=== PATIENT | female | born 1955 | race Caucasian/White ===

== ENCOUNTER 2025-02-28 11:02 | Emergency (ER) | payer MEDICARE, SELFPAY ==
[2025-02-28 11:33] VITALS: BP 132/75; PULSE 56; RESP 16; TEMP 36.7; O2SAT 98
--- OUTSIDE RECORDS SUMMARY | 2025-02-28 13:49 | XMS_ITS | Encounter Summary ---
Author Organization [facility] Healthcare Address [address] [place] [id number] Care Team Providers Care Fiscal Accounting Clerk Name Role Phone Melinda Johnson Primary Care Provider Reason for Visit * Reason Comments Injections Est patient here for right shoulder ultrasound guided hydrodilation injection. Patient is scheduled for P/T at 1:45 pm.Pain: 2/10 Pain Est patient here for right shoulder ultrasound guided hydrodilation injection. Patient is scheduled for P/T at 1:45 pm.Pain: 2/10 Encounter Details Date Type Department Care Team (Late st Contact Info) Description 02/28/2025 10:00 AM CDT Office Visit [facility] Sports Medicine and Primary Care at [address] [place] [address] Narciso Andino, [address] [facility] [address] [place] [id number] Adhesive capsulitis of right shoulder (Primary Dx) Social History Tobacco Use Types Packs/Day Years Used Date Smoking Tobacco: Never Tobacco Cessation:Counseling Given: Not Answered AUDIT-C Answer Date Recorded Q1: How often do you have a drink containing alc ohol? Never 01/27/2025 Q2: How many drinks containi ng alcohol do you have on a typical day when you are drinking? 1 or 2 01/27/2025 Q3: How often do you have si x or more drinks on one occasion? 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 Gender Identity Not on file Sexual Orientation Not on file documented as of this encounter Last Filed Vital Signs Vital Sign Reading Time Taken Comments Blood Pressure 127/70 02/28/2025 9:49 AM CDT Pulse 96 02/28/2025 9:49 AM CDT Temperature - - Respiratory Rate 18 02/28/2025 9:49 AM CDT Oxygen Saturation - - Inhaled Oxygen Concentration - - Weight 81.1 kg (178 lb 12.8 oz) 02/28/2025 9:49 AM CDT Height 162.6 cm (5' 4 ) 02/28/2025 9:49 AM CDT Body Mass Index 30.69 02/28/2025 9:49 AM CDT documented in this encounter Progress Notes * Narciso Andino, - 02/28/2025 10:00 AM CDT Images from the original note were not included. NEW PATIENT VISIT Subjective CHIEF COMPLAINT She had concerns including Injections and Pain of the Right Shoulder (Est patient here for right shoulder ultrasound guided hydrodilation injection. Patient is scheduled for P/T at 1:45 pm./Pain: 11/28). HISTORY OF PRESENT ILLINESS Here for her right shoulder ultrasound-guided hydro dilation with suprascapular nerve block. Patient states the pain is the same as it was before and she is scheduled for her physical therapy at 1:45p.m. today. Discussed the risks and benefits of the procedure today. Discussed the conservative management including PT and avoidance of offending activities with time. Discussed the outcomes of eachdifferent treatment process and their potential outcomes. Went over the major risk nature of this procedure including the risks of: infection, bleeding, damage to tendon/ligament, damage to nerves/vessels, and possible need for further intervention at a later date. Explained to patient that their particular medical problems including Functional neurological symptom disorder with abnormal movementwill increase the risk in this case. Patient agreed to pursue the procedure and we will schedule for this at the next visit. Pain Pertinent negatives include no chest pain, diarrhea, fever, nausea, shortness of breath, vomiting or wheezing. MEDICATIONS She has a current medication list which includes the following prescription(s): aspirin, c,e,zinc,copper [id number], calcium carbonate-vitamin d3, cyanocobalamin (vitamin b-12), fish oil-dha-epa,klor-con m20, multivitamin, omeprazole, potassium cl-calcium phos-mag, rosuvastatin, and triamcinolone. ALLERGIES She is allergic to penicillins. REVIEW OF SYSTEMS Review of Systems Constitutional: Negative for chills, diaphoresis and fever. HENT: Negative for sore throat and tinnitus. Eyes: Negative for photophobia. Respiratory: Negative for shortness of breath and wheezing. Cardiovascular: Negative for chest pain and palpitations. Gastrointestinal: Negative for diarrhea, nausea and vomiting. Musculoskeletal: Positive for arthralgias. Objective PHYSICAL EXAM BP 127/70 Pulse 96 Resp 18 Ht 162.6 cm (5' 4 ) Wt 81.1 kg (178 lb 12.8 oz) BMI 30.69 kg/m?? Assessment/Plan Assessment & Plan Adhesive capsulitis of right shoulder Orders: lidocaine (XYLOCAINE) 20 mg/mL (2 %) injection 280 mg methylPREDNISolone acetate (DEPO-medrol) injection 80 mg Procedures done under ultrasound guidance as noted in the procedure note today. Patient tolerated the procedures well. Advised to call if any signs of infection or bleeding or any signs of nerve damage. If she can not get a hold of me she should go to the emergency room. I advised on getting into her physical therapy for her range of motion activities today and following up frequently with them as prescribed. If there is limited to no improvement then she should return to the office and we can discuss other options. She exhibited understanding and is in agreement with this plan of care. Narciso Andino DO documented in this encounter Procedure Notes * Narciso Andino DO - 02/28/2025 10:00 AM CDT US guided right shoulder hydrodilation procedure Patient name: Sharonda Reid Performing physician: Narciso Andino DO, [place] Reason for procedure: Right shoulder adhesive capsulitis Procedure 1: Patient in the left lateral recumbent position. The right shoulder was sterilized using hibiclens. Sterile technique was used on the US probe, along with sterile US gel. The Probe was placed over theposteromedial shoulder and the suprascapular notch was identified with the suprascapular nerve noted within the notch. Doppler ultrasound was used over the pathway of the needle to confirm no vascular structures within the pathway. After confirming the pathway, a 22 gauge, 3.5 in needle was inserted on the lateral aspect of the shoulder, implant to the transducer, and the needle tip was identified in the subcutaneous tissue. The needle was advanced in real-time to the suprascapular notch just superficial to the suprascapular nerve, and a substrate of 4 cc of 2% lidocaine without epinephrine was injected around the suprascapular nerve. Flow of fluid around the nerve and within the notch werenoted for confirmation of placement. Impression: 1 - successful injection of substrate for suprascapular nerve block under ultrasound guidance Procedure 2: Patient placed in the left lateral recumbent position. The right shoulder was again sterilized using Hibiclens. Again sterile technique was used on the ultrasound probe along with sterile ultrasound gel. The probe was placed over the posterolateral shoulder and the posterior shoulder joint was identified. Care was taken to identify the posterior joint capsule. Doppler ultrasound was placed over the pathway of the needle to confirm no vasculature within the pathway of the needle. Once this was confirmed, a 3.5 in 18 gauge needle was inserted on the lateral aspect of the shoulder, implant to the transducer, and the needle tip was identified in the subcutaneous tissue. The needle was advanced,in real time, to the posterior shoulder capsule. Once noted within the shoulder capsule, a substrate of 7 cc of 2% lidocaine without epinephrine +15 cc of sterile saline + 1ml of 80mg of DepoMedrol was injected into the posterior shoulder. Flow of fluid within the capsule was noted for confirmationof placement along with the distention of the capsule. Impression: Successful hydrodilation of the right shoulder under ultrasound guidance. documented in this encounter Miscellaneous Notes * Assessment & Plan Note - Narciso Andino DO - 02/28/2025 10:00 AM CDT Associated Problem(s): Adhesive capsulitis of right shoulder Orders: lidocaine (XYLOCAINE) 20 mg/mL (2 %) injection 280 mg methylPREDNISolone acetate (DEPO-medrol) injection 80 mg Procedures done under ultrasound guidance as noted in the procedure note today. Patient tolerated the procedures well. Advised to call if any signs of infection or bleeding or any signs of nerve damage. If she can not get a hold of me she should go to the emergency room. I advised on getting into her physical therapy for her range of motion activities today and following up frequently with them as prescribed. If there is limited to no improvement then she should return to the office and we can discuss other options. She exhibited understanding and is in agreement with this plan of care. documented in this encounter Plan of Treatment Not on file documented as of this encounter Visit Diagnoses Diagnosis Adhesive capsulitis of right shoulder- Primary documented in this encounter Administered Medications Inactive Administered Medications - up to 3 most recent administrations Medication Order MAR Action Action Date Dose Rate Site lidocaine (XYLOCAINE) 20 mg/mL (2 %) injection 280 mg 280 mg (14 mL), other, Once, On Thu02/28/25 at 1030, For 1 dose, Indications: Administration of Local AnesthesiaIndications:Admini stration of Local Anesthesia Given 02/28/2025 9:48 AM CDT 280 mg Right Shoulder methylPREDNISolone acetate (DEPO-medrol) injection 80 mg 80 mg, other, Once, On Thu02/28/25 at 1030, For 1 doseIndications:Adhesive capsulitis of right shoulder Given 02/28/2025 9:48 AM CDT 80 mg Right Shoulder documented in this encounter Care Teams Fiscal Accounting Clerk Relationship Specialty Start Date End Date Melinda Johnson PA [address] [place] [id number] PCP - General 04/23/22 documented as of this encounter
--- OUTSIDE RECORDS SUMMARY | 2025-02-28 13:49 | XMS_ITS | Encounter Summary ---
Author Organization [facility] Address [address] [place] [address] Care Team Providers Care Fence Post Driver Name Role Phone Clement Gates MD Primary Care Provider [phone] Chris Torres MD [facility] Jerica Dominguez MD Primary Care Provider [phone] Encounter Details Date Type Department Care Team (Late st Contact Info) Description 03/26/2019 Abstract [facility] CONVERSION [address] [place] [address] , Generic Conversion, Social History Tobacco Use Types Packs/Day Years Used Date Smoking Tobacco: Never Smokeless Tobacco: Never Alcohol Use Standard Drinks/Week Comments Yes 0 (1 standard drink = 0.6 oz pur e alcohol) rare Comments Unknown Sex and Gender Information Value Date Recorded Sex Assigned at Not on file Legal Sex Female 4:47 PM CDT Gender Identity Not on file Sexual Orientation Not on file documented as of this encounter Plan of Treatment Not on file documented as of this encounter Visit Diagnoses Not on filedocumented in this encounter Care Teams Fence Post Driver Relationship Specialty Start Date End Date Clement Gates MD [address] [place] [address] PCP - General FAMILY PRACTICE 06/29/18 10/01/20 [place] [address] PCP - General FAMILY PRACTICE 10/02/20 Chris Torres MD [address] [place] [address] [place] [employer] Manager INTERVENTIONAL CARDIOLOGY 06/29/18 documented as of this encounter
--- OUTSIDE RECORDS SUMMARY | 2025-02-28 13:49 | XMS_ITS | Referral Summary ---
Author Organization [facility] Address [address] [place] [address] Care Team Providers Care Go Cart Mechanic Name Role Phone Melinda Johnson Primary Care Provider Encounters Date Type Department Care Team Description 02/28/2025 Documentation [facility] Medical [facility] Sports Medicine and Primary Care at [address] [phone] Rachel Bajwa MA 02/28/2025 10:00 AM CDT Office Visit [facility] Sports Medicine and Primary Care at [address] [phone] Narciso Andino DO Adhesive capsulitis of right shoulder (Primary Dx) 02/23/2025 10:00 AM CDT Therapy [facility] Occupational Therapy [address] [place] [phone] Shahla Stern OT Functional neurological symptom disorder (conversion disorder), with abnormal movement (Primary Dx) 02/21/2025 Telephone [facility] Orthopedics and Sports Medicine [address] [place] [address] [address], [place] [phone] Narciso Andino DO 02/16/2025 9:00 AM CDT Therapy [facility] Occupational Therapy [address] [place] [phone] Shahla Stern OT Functional neurological symptom disorder (conversion disorder), with abnormal movement (Primary Dx) 02/13/2025 8:30 AM CDT Office Visit [facility] Medical [facility] Sports Medicine and Primary Care at [address] [place] [address] Narciso Andino DO Adhesive capsulitis of right shoulder (Primary Dx) 02/09/2025 10:00 AM CDT Therapy [facility] Occupational Therapy [address] [place] [phone] Shahla Stern OT Functional neurological symptom disorder (conversion disorder), with abnormal movement (Primary Dx) 02/06/2025 Orders Only [facility] Orthopedics and Sports Medicine [address] [place] [address] [address] [place] [phone] Jewel Hager PA Adhesive capsulitis of right shoulder (Primary Dx) 02/06/2025 Telephone [facility] Orthopedics and Sports Medicine [address] [place] [address] [address], [place] [address] Jewel Hager PA 02/02/2025 Plan of Care Documentation [facility] Occupational Therapy [address] [place] [phone] 02/01/2025 10:00 AM CDT Therapy [facility] Occupational Therapy [address] [place] [phone] Shahla Stern OT Functional neurological symptom disorder (conversion disorder), with abnormal movement (Primary Dx) 01/27/2025 10:00 AM CDT Office Visit [facility] Orthopedics [facility] Sports Medicine [address] [place] [address] [address], [place] [address] Jewel Hager PA Adhesive capsulitis of right shoulder (Primary Dx) 01/17/2025 7:00 PM CDT Lab [facility] [address] [place] [address] Myoclonus 01/17/2025 2:30 PM CDT Office Visit [facility] Movement Disorders [address] [facility] Advanced Medicine [address]th [place] [address] Tri Eastman MD Functional neurological symptom disorder (conversion disorder), with abnormal movement (Primary Dx); Myoclonus 12/22/2024 Telephone [facility] Scheduling [address] [place] [address] Tri Eastman MD Scheduling Appointments from Last 3 Months Allergies Active Allergy Reactions Criticality Noted Date Comments Penicillins Hives High 06/11/2020 Medications omeprazole (PriLOSEC) 40 mg capsule Take 1 capsule (40 mg total) by mouth daily 4 Active Klor-Con M20 20 mEq CR tablet Take 1 tablet (20 mEq total) by mouth daily Active rosuvastatin (CRESTOR) 10 mg tablet Take 1 tablet (10 mg total) by mouth daily Active multivitamin tabletIndicatio ns:Vitamin Deficiency Prevention Take 1 tablet by mouth daily Active calcium carbonate-vitam in D3 1,500 mg (600 mg elemental)-800 unit tablet,chewable Take 1 tablet/capsule by mouth daily Active aspirin 81 mg chewable tablet Take 1 tablet (81 mg total) by mouth daily Active cyanocobalamin, vitamin B-12, 1,000 mcg/mL kit Take 1 tablet/capsule by mouth daily Active fish oil-dha-epa 1,200-144-216 mg capsule Take 1 tablet/capsule by mouth daily Active triamcinolone (NASACORT) 55 mcg nasal inhaler Administer 2 sprays into each nostril as needed for rhinitis Active potassium Cl-calcium phos-mag 40-18-9 mg tablet Take 20 mEq by mouth rate examiner before breakfast Active C,E,zinc,copper [id number] 250-5-1 mg capsule Take 1 mg by mouth rate examiner before breakfast Active Hospital, Clinic, or Other Facility Administered Medication Ordered Dose Route Frequency Start Date End Date Status lidocaine (XYLOCAINE) 20 mg/mL (2 %) injection 280 mgIndications:Administratio n of Local Anesthesia 280 mg OTHER Once 02/28/2025 02/28/2025 End ed methylPREDNISolone acetate (DEPO-medrol) injection 80 mgIndications:Adhesive capsulitis of right shoulder 80 mg OTHER Once 02/28/2025 02/28/2025 Ended Active Problems Problem Noted Date Diagnosed Date Adhesive capsulitis of right shoulder 02/28/2025 Assessment & Plan (02/28/2025 10:26 AM CDT): Orders: lidocaine (XYLOCAINE) 20 mg/mL (2 %) [...] in agreement with this plan of care. 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 Gender Identity Not on file Sexual Orientation Not on file Last Filed Vital Signs Vital Sign Reading [...] Mass Index 30.69 02/28/2025 9:49 AM CDT Plan of Treatment Not on file Procedures Procedure Name Priority Date/Time Associated Diagnosis Comments EGFR Routine 01/17/2025 5:24 PM CDT Myoclonus DIFFERENTIAL AUTO Routine 01/17/2025 5:2 4 PM CDT Myoclonus AMMONIA Routine 01/17/2025 5:24 PM CDT Myoclonus BASIC METABOLIC PANEL Routine 01/17/2025 5:24 PM CDT Myoclonus HEPATIC FUNCTION PANEL Routine 01/17/2025 5:24 PM CDT Myoclonus CBC WITH AUTO DIFFERENTIAL Routine 01/17/2025 5:24 PM CDT Myoclonus SCREENING MAMMOGRAM BILATERAL W MAURICE Schedule Routine, Read Routine (OP Routine) 08/01/2024 9:15 AM CDT Screening mammogram, encounter for from Last 3 Months or Most Recently Relevant to Health Maintenance Results * eGFR (01/17/2025 5:24 PM CDT) eGFR 87 >=60 mL/min/1. 73 m2 Comment: Interpretive Data Reference Interval Normal >/= 90 mL/min/1.73m2 Mildly decreased* 60 - 89 mL/min/1.73m2 Mildly to moderately decreased 45 - 59 mL/min/1.73m2 Moderately to severely decreased 30 - 44 mL/min/1.73m2 Severely decreased 15 - 29 mL/min/1.73m2 Kidney Failure < 15 mL/min/1.73m2 *Relative to young adult level Estimated glomerular filtration rate is determined by the 2020 CKD-EPI equation recommended by the National Kidney Foundation (A Unifying Approach to GFR Estimation: Recommendations of the NKF-ASK Task Force on Reassessing the Inclusion of Race in Diagnosing Kidney Disease, JASN 202). The CKD-EPI equation should not be used for patients with unstable renal function and has not been validated in children and those over 70. Current interpretive data was last reviewed 2021. Blood 01/17/2025 5:24 PM CDT 01/17/2025 6:02 PM CDT us Humsini Viswanath MD LAB BLOOD ORDERABLES Final Result [facility] Department [place] [address] * Differential, auto (01/17/2025 5:24 PM CDT) Neutrophil abs 3.70 1.50 - 6.50 K/cumm Imm gran abs 0.02 0.00 - 0.10 K/cumm [facility] Lymphocyte abs 3.22 0.80 - 3.30 K/cumm [facility] Monocyte abs 0.58 0.20 - 0.80 K/cumm [facility] Eosinophil abs 0.19 0.00 - 0.50 K/cumm [facility] Basophil abs 0.05 0.00 - 0.10 K/cumm [facility] Neutrophil pct 47.7 % [facility] Comment: Interpretive Data Percent cell count reference ranges are not reported, since discordance with absolute values may lead to misinterpretation of CBC data. Current Interpretive Data was last revised on 2018. Imm gran pct 0.3 % [facility] Comment: Interpretive Data Percent cell count reference ranges are not reported, since discordance with absolute values may lead to misinterpretation of CBC data. Current Interpretive Data was last revised on 2018. Lymphocyte pct 41.5 % [facility] Comment: Interpretive Data Percent cell count reference ranges are not reported, since discordance with absolute values may lead to misinterpretation of CBC data. Current Interpretive Data was last revised on 2018. Monocyte pct 7.5 % [facility] Comment: Interpretive Data Percent cell count reference ranges are not reported, since discordance with absolute values may lead to misinterpretation of CBC data. Current Interpretive Data was last revised on 2018. Eosinophil pct 2.4 % [facility] Comment: Interpretive Data Percent cell count reference ranges are not reported, since discordance with absolute values may lead to misinterpretation of CBC data. Current Interpretive Data was last revised on 2018. Basophil pct 0.6 % [facility] Comment: Interpretive Data Percent cell count reference ranges are not reported, since discordance with absolute values may lead to misinterpretation of CBC data. Current Interpretive Data was last revised on 2018. Blood 01/17/2025 5:24 PM CDT 01/17/2025 5:58 PM CDT Tri Eastman MD LAB BLOOD ORDERABLES Final Result Performing Organization Address City/[facility]/ZIP Co de Phone Number [facility] [place] [address] * CBC with auto differential (01/17/2025 5:24 PM CDT) Pathologist [facility] WBC 7.76 3.80 - 9.90 K/cumm Hgb 12.9 11.9 - 15.5 g/dL [facility] Hct 38.8 35.6 - 45.5 % [facility] Plt 218 150 - 400 K/cumm [facility] MPV 9.7 9.1 - 12.3 fL [facility] RBC 4.39 3.90 - 5.20 M/cumm [facility] MCV 88.4 81.3 - 96.4 fL [facility] MCH 29.4 27.1 - 33.3 pg [facility] MCHC 33.2 32.3 - 35.7 g/dL [facility] RDW CV 12.0 11.1 - 14.9 % [facility] RDW SD 38.4 35.7 - 48.1 fL [facility] NRBC abs 0.00 0.00 - 0.01 K/cumm [facility] Blood 01/17/2025 5:24 PM CDT 01/17/2025 5:58 PM CDT Tri Eastman MD LAB BLOOD ORDERABLES Final Result Performing Organization Address City/[facility]/ZIP Co de Phone Number [facility] [place] [address] * Ammonia (01/17/2025 5:24 PM CDT) Pathologist [facility] Ammonia <20 <=50 mcmol/L Comment:Repeated and Verifie d Blood 01/17/2025 5:24 PM CDT 01/17/2025 5:39 PM CDT Tri Eastman MD LAB BLOOD ORDERABLES Final Result [facility] [place] [address] * Hepatic function panel (01/17/2025 5:24 PM CDT) [facility] Bilirubin, total 0.4 0.1 - 1.2 mg/dL Bilirubin, direct <0.2 0.1 - 0.3 mg/dL [facility] Protein, pl 7.7 6.5 - 8.5 g/dL [facility] Albumin 4.4 3.5 - 5.0 g/dL [facility] Alk phos 70 40 - 130 Units/L [facility] ALT 29 7 - 45 Units/L [facility] AST 27 10 - 45 Units/L [facility] Blood 01/17/2025 5:24 PM CDT 01/17/2025 5:58 PM CDT Tri Eastman MD LAB BLOOD ORDERABLES Final Result [facility] [place] [address] * Basic metabolic panel (01/17/2025 5:24 PM CDT) Pathologist [facility] Sodium 144 135 - 145 mmol/L Potassium, pl 4.1 3.3 - 4.9 mmol/L [facility] Chloride 107 97 - 110 mmol/L [facility] CO2 31 22 - 32 mmol/L [facility] Anion gap 6 2 - 15 mmol/L [facility] BUN 13 6 - 25 mg/dL [facility] Creatinine 0.74 0.60 - 1.10 mg/dL [facility] Glucose 102 70 - 199 mg/dL [facility] Comment: Interpretive Data Fasting glucose >/= 126 mg/dl is diagnostic for diabetes. Fasting is defined as no caloric intake for at least 8 hours. Fasting glucose between 100 mg/dl to 125 mg/dl is diagnostic of prediabetes. In a patient with classic symptoms of hyperglycemia or hyperglycemic crisis, a random glucose >/= 200 mg/dl is diagnostic for diabetes. In the absence of unequivocal hyperglycemia, results should be confirmed by repeat testing. The classification and Diagnosis of Diabetes Diabetes Care 2021; 46: S19-S40. Current interpretive data was last revised 2022. Calcium 10.0 8.5 - 10.3 mg/dL [facility] Blood 01/17/2025 5:24 PM CDT 01/17/2025 5:58 PM CDT us Tri Eastman MD LAB BLOOD ORDERABLES Final Result Performing Organization Address City/State/[facility] Co de Phone Number [facility] Department [place] [address] * Screening Mammogram Bilateral W Maurice (08/01/2024 9:15 AM CDT) Anatomical Region Laterality Modality Breast Bilateral Mammography 08/01/2024 1:16 PM CDT Impressions 08/01/2024 1:16 PM CDT There is no mammographic evidence of malignancy. The patient may continue screening mammography as per ACR guidelines. FINAL ASSESSMENT: BI-RADS Category 1: Negative. Electronically signed by: Xiomara Alvarado M.D. Narrative 08/01/2024 1:16 PM CDT EXAMINATION: BILATERAL SCREENING MAMMOGRAM WITH TOMOGRAPHY HISTORY: Screening COMPARISON(S): Multiple studies dating back to 2019. TECHNIQUE: Full-field 2D and digital breast tomosynthesis (DBT) images were obtained. CAD was utilized. BREAST PARENCHYMAL COMPOSITION: There are scattered areas of fibroglandular density. FINDINGS: There are no suspicious masses. No suspicious calcifications are seen. There is no unexplained architectural distortion. There is no skin thickening seen. There are no mammographically abnormal lymph nodes seen in the axillae or elsewhere. us Self Screening Mammogram IMG MAMMO PROCEDURES Fi nal Result from Last 3 Months or Most Recently Relevant to Health Maintenance Insurance [employer] [facility]ICARE Knowledge Factor OPEN ACCESS [facility] MEDICARE ADVANTAGE [employer] MEDICARE AET MEDICARE Care Teams Go Cart Mechanic Relationship Specialty Start Date End Date Melinda Johnson PA [address] [place] [id number] PCP - General 04/23/22
--- OUTSIDE RECORDS SUMMARY | 2025-02-28 13:49 | XMS_ITS | Continuity of Care Document ---
Author Organization [facility] [address] [facility] [address] [place] [address] [place] [phone] Phone Care Team Providers Care Client Experience Specialist Name Role Phone Chloe OD, Reyna Unavailable Unavailable Allergies, Adverse Reactions, Alerts Substance Reaction Status Criticality PENICILLIN Active No Information Medications Medication Instructions Dosage Effective Dates (start - stop) Status Comments tobramycin 0.3 % eye drops Instill one drop into Operated Eye QID x 7 days; to begin after being seen in the office for first post op visit. - Active prednisolone acetate 1 % eye drops,suspension Instill 1 drop into Operated Eye QID x 2 weeks, BID x 2 weeks; to begin after being seen in the office for first post op visit. - Active potassium chloride ER 20 mEq tablet,extended release take 1 tablet by oral route every day with food 20 MEQ - Active omeprazole 20 mg capsule,delayed release take 1 capsule by oral route every day before a meal 20 MG - Active rosuvastatin 10 mg tablet take .5 tablet by oral route 3 times a week - Active Ocuvite Adult 50 Plus 250 mg (90 mg-160 mg) capsule take 1 capsule by oral route every day 1 capsule - Active Women's 50 Plus Multivitamin 400 mcg-500 mg calcium-20 mcg tablet take 1 by oral route every day 1 - Active Calcium 600 + D(3) 600 mg-10 mcg (400 unit) tablet take 1 by oral route 2 times every day 1 - Active aspirin 81 mg tablet,delayed release take 1 tablet by oral route every day 81 MG - Active Nasacort 55 mcg nasal spray aerosol spray 1 by nasal route every day as needed - Active Procedures Procedure Date Refraction Post-op Follow-up Visit Post-op Follow-up Visit Remove Cataract, Insert Lens IOLMaster-Professional No Charge Refraction No Charge GDX Retina Post-op Follow-up Visit Post-op Follow-up Visit Remove Cataract, Insert Lens IOLMaster-Professional Fundus Photography W/ Report Corneal Topography No Charge Refraction SCODI, Retina IOLMaster-Technical Eye Exam, New Patient Advance Directives Directive Yes / No Effective Date File Name No Information Encounters Encounter Description Practice Location Reason(s) For Visit Diagnoses Date Provider Providers Copied on Encounter [facility], [address] [place] [address] [address], [place], [place], [id number], tel:[phone] SEC Rohith WEBBER Professional Post-Op (chief complaint) Postop check Oct-2 3-202 3 Chloe OD Reyna. [address] [place] [address] [address], [address], [place], [id number], [place]. tel:[phone] Referring Provider: Sam Ha OD, [address], [address]. tel:[phone] [facility], [address], [place], [place], [id number], tel:[phone] SEC Rohith WEBBER Professional 1 Day CE/IOL PO (chief complaint) Postop check Oct-0 6-202 3 Chloe OD Reyna. [address] [address], [address], [place], [place], [address], . tel:[phone] Referring Provider: Sam Ha OD, [address], [address]. tel:[phone] [facility], [address] [place] [address] [address], [place], [place], [id number], tel:[phone] [facility] No Information Oct-0 -202 3 Drums Nadeem. [address] [place] [address], [address], [place], [place], [id number], . tel:[phone] Referring Provider: Sam Ha OD, [address], [address]. tel:[phone] [facility], [address] [place] [address] [address], [place], [place], [address], tel:[phone] SEC [place] No Information Oct-0 - 3 Cheryle Nadeem. [address] [place] [address], [address], [place], [place], [id number], [place]. tel:[phone] Referring Provider: Sam Ha OD, [address], [address]. tel:[phone] [facility], [address] [place] [address] [address], [place], [place], [id number], tel:[phone] SEC Rohith WEBBER Professional Post-Op (chief complaint) Postop check Sep-2 3 Dodie OD Kika. [address] [place] [address], [address], [place], [place], [id number], [place]. tel:[phone] Referring Provider: Sam Ha OD, [address], [address]. tel:[phone] [facility], [address] [place] [address] [address], [place], [place], [id number], tel:[phone] SEC Rohith WEBBER Professional 1 Day CE/IOL PO (chief complaint) Postop check Sep-1 3 Chloe OD Reyna. [address] [place] [address] [address], [address], [place], [place], [address], . tel:[phone] Referring Provider: Sam Ha OD, [address], [address]. tel:[phone] [facility], [address] [place] [address] [address], [place], [place], [address], tel:[phone] [facility] No Information Sep- 3 Drums Nadeem. [address] [place] [address], [address], [place], [address], [place]. tel:[phone] Referring Provider: Sam Ha OD, [address], [address]. tel:[phone] [facility], [address] [place] [address] [address], [place], [place], [address], tel:[phone] SEC [place] No Information Jun- 3 Drums Nadeem. [address] [place] [address] [address], [address], [place], [place], [id number], [place]. tel:[phone] Referring Provider: Sam Ha OD, [address], [address]. tel:[phone] [facility], [address] [place] [address] [address], [place], [place], [address], [place] tel:[phone] SEC [place] No Information 3 Drums Nadeem. [address] [place] [address], [address], [place], [place], [address], [place]. tel:[phone] [facility], [address] [place] [address] [address], [place], [place], [address], tel:[phone] SEC [place] [employer] Professional Cataract evaluation (chief complaint) Age-related nuclear cataract, bilateralPuck ering of macula, bilateralMacu lar cyst, hole, or pseudohole, bilateral 3 Cheryle Silver. [address], [address], [place], [address], . tel:[phone] Referring Provider: Sam Ha OD, [address], [address]. tel:[phone] [facility], [address] [place], [place] [address], [place], [place], [address], tel:[phone] SEC [place] No Information 3 Cheryle Silver. [address], [address], [place], [place], [address], . tel:[phone] Referring Provider: Sam Ha OD, [address], [address]. tel:[phone] Family History Family Member Type Diagnosis Age At Onset Mother Problem (finding) Breast Cancer Problem Family history of Diabetes m ellitus Mother Problem (finding) Arthritis Mother Problem (finding) Diabetes Type II Mother Problem (finding) High blood pressure Problem Family history of Macular de generation Sister Problem (finding) Diabetes Type II Payers Payer name Insurance type Covered green party ID Authoriza tion(s) No Information Social History Type Description Quantity Date Captured Comments Alcohol Use Details No Caffeine Use Details No Tobacco Use Status Current non-smoker Smoking Status Never smoker Non-Smoking Tobacco Use Details : No Details Available : No Details Available Sex Female Chief Complaint And Reason For Visit From encounter dated '08/10/2023 10:30'. Post-Op (chief complaint). Description: The 68 year old patient presents for a 2 week post op CE OS. Patient is using Pred bid OS. Patient states OS is doing ok. Reason For Referral Reason For Referral No Information Plan Of Treatment Date Type Action Status Referral Ordered: Calvin Blankenship (related to Macular cyst, hole, or pseudohole, bilateral) ordered Referral Referred To: Calvin Blankenship [address] [place], [address] Ordered: Referrals: Calvin Blankenship. Evaluate and treat ordered Patient Education Cataracts: Care Instruc tions completed History Of Present Illness Encounter Date Complaint History Of Prese nt Illness Post-Op The 68 year old patient presents for a 2 week post op CE OS. Patient is using Pred bid OS. Patient states OS is doing ok. 1 Day CE/IOL PO The 68 year old patient presents for evaluation of 1 Day CE/IOL PO in the left eye. Pt states no pain or discomfort, pt states vision is still pretty blurry. Pt does have all gtts and understands how to take them as instructed. Post-Op The 68 year old patient presents for a 2 week post op CE OD. Patient is using Pred qid OD. Patient states OD is doing good but vision seems blurry in the middle. Patient wishes to proceed with CE OS. Patient is bothered by glare around lights at night. Patient is having a hard time seeing road signs and watching TV. 1 Day CE/IOL PO The 68 year old patient presents for evaluation of 1 Day CE/IOL PO in the right eye. Pt states OD feels a little irritated but no pain. Pt states vision is blurry. Pt has all gtts and understands how to take them as instructed. Cataract evaluation The 68 year old patient presents for evaluation of Cataract evaluation in the right eye and left eye. Patient states she has some difficulty reading road signs at a distance with both eyes. Patient has difficulty seeing at night due to glare with both eyes and trouble seeing captions on the TV. Functional Status Date Functional Assessmen t No Information Instructions Date Instruction John Starrr harry Impression/Plan Impression/Plan Impression/Plan Impression/Plan Impression/Plan Assessments Type Assessment Date assessment Postop check Patient Care Teams Name Effective Dates (start - stop) Status Members No Information
--- OUTSIDE RECORDS SUMMARY | 2025-02-28 13:49 | XMS_ITS | Encounter Summary ---
Author Organization [facility] Healthcare Address [address] [place] [address] Care Team Providers Care Quantitative Analyst Marketing Name Role Phone Melinda Johnson Primary Care Provider Encounter Details Date Type Department Care Team (Late st Contact Info) Description 02/28/2025 Documentation [facility] Sports Medicine and Primary Care at [address] [place] [address] Rachel Bajwa MA Social History Tobacco Use Types Packs/Day Years Used Date Smoking Tobacco: Never AUDIT-C Answer Date Recorded Q1: How often [...] on file 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 ED due to seizures. They will call patient to reschedule her physical therapy. documented in this encounter Plan of Treatment Not on file documented as of this encounter Visit Diagnoses Not on filedocumented in this encounter Care Teams Quantitative Analyst Marketing Relationship Specialty Start Date End Date Melinda Johnson PA [address] [place] [address] PCP - General 04/23/22 documented as of this encounter
--- OUTSIDE RECORDS SUMMARY | 2025-02-28 13:49 | XMS_ITS | Encounter Summary ---
Author Organization [facility] Address [address] [place] [address] Care Team Providers Care Department Store Door Greeter Name Role Phone Clement Gates MD Primary Care Provider [phone] Chris Torres MD [facility] Jerica Dominguez MD Primary Care Provider [phone] Encounter Details Date Type Department Care Team (Late st Contact Info) Description 06/29/2018 [facility] [address] [place] [id number] Chris Torres MD Social History Tobacco Use Types Packs/Day Years Used Date Smoking Tobacco: Never Alcohol Use Standard Drinks/Week Comments [...] on filedocumented in this encounter Care Teams Department Store Door Greeter Relationship Specialty Start Date End [place] [address] PCP - General FAMILY PRACTICE 06/29/18 10/01/20 [place] [address] PCP - General FAMILY PRACTICE 10/02/20 Chris Torres MD [address] [place] [address] [place] Office Machine Technician INTERVENTIONAL CARDIOLOGY 06/29/18 documented as of this encounter
--- OUTSIDE RECORDS SUMMARY | 2025-02-28 13:49 | XMS_ITS | Clinical Summary ---
Author Organization [facility] Address [address] [place] [address] Care Team Providers Care Pen Maker Name Role Phone Chris Torres MD Unavailable Unavailab Jerica Dominguez MD Primary Care Provider [phone] Allergies Active Allergy Reactions Criticality Noted Date Comments Penicillin V Hives 06/29/2018 Medications potassium chloride CR 20 MEQ tablet Take 20 mEq by mouth daily. 4 8 Active multi vitamin/mineral s tablet Take 1 tablet by mouth daily. Active Calcium Carb-Cholecalci ferol (CALCIUM CARBONATE-VITAM IN D) 600-200 MG-UNIT tablet Take 1 tablet by mouth 2 (two) times a day. Active Triamcinolone Acetonide (NASACORT AQ NA)Indications: seasnonally for allergies Indications: seasnonally for allergies Active rosuvastatin 10 MG tablet Take 5 mg by mouth 3 (three) times a week. Thursday and Thursday Active aspirin EC (ASPIRIN) 81 MG EC tablet Take 81 mg by mouth nightly. Active pantoprazole 40 MG tablet Take 1 tablet (40 mg total) by mouth every morning. 30 tablet 8 Active Active Problems Problem Noted Date Diagnosed Date Multiple pulmonary nodules 04/13/2019 Functional dyspnea 04/13/2019 Mixed hyperlipidemia 07/01/2018 SOB (shortness of breath) 06/30/2018 Family History Medical History Relation Comments Stroke Father Heart Attack Maternal Grandmother Relation Status Comments Father Maternal Grandmother Social History Tobacco Use Types Packs/Day Years [...] Sign Reading Time Taken Comments Blood Pressure 112/60 04/13/2019 9:46 AM CDT Pulse 81 04/13/2019 9:46 AM CDT Temperature 36.4 C (97.5 F) 07/09/2018 4:40 AM CDT Respiratory Rate 18 07/09/2018 4:40 AM CDT Oxygen Saturation 98% 04/13/2019 9:46 AM CDT room air Inhaled Oxygen Concentration - - Weight 76.2 kg (168 lb) 04/13/2019 9:46 AM CDT Height 162.6 cm (5' 4 ) 04/13/2019 9:46 AM CDT Body Mass Index 28.84 04/13/2019 9:46 AM CDT Plan of Treatment Health Maintenance Due Date Last Done Comments Colorectal Cancer Screening Colonoscopy (10 Years) 1954 Hepatitis C 1972 Mammogram Screening 1994 Zoster Vaccines (2 of 3) 09/26/2013 013, 1955 Pneumococcal Vaccine: 50+ Years (2 of 2 - PCV) 08/01/2014 08/01/2013 Annual Medicare Wellness Visit 2019 COVID-19 Vaccine (1 - 2023-2 5 season) 2024 DTaP, Tdap and Td Vaccines ( 2 - Td or Tdap) 08/29/2024 08/29/2014 RSV Immunization or 60+ Years (1 - 1-dose 75+ series) 2029 Dexa Scan (General) Completed 10/07/2016, 08/29/2013, 04/23/2010 Meningococcal B Vaccine Aged Out No l onger eligible based on patient's age to complete this topic Meningococcal Vaccine Aged Out No wellington brandon eligible based on patient's age to complete this topic RSV Immunizations Under 20 Months Aged Out No longer eligible b ased on patient's age to complete this topic Insurance [facility] MED REPLACE [facility] MEDICARE [facility] Advance Directives * Full Code (Latest Code Status on File) Date Activated Date Inactivated Comments 07/05/2018 4:11 PM 07/09/2018 1:41 PM * Full Code Date Activated Date Inactivated Comments 06/30/2018 6:35 PM 07/05/2018 4:11 PM Care Teams Pen Maker Relationship Specialty Start Date End Date Jerica Wong MD [address] [place] [address] PCP - General FAMILY PRACTICE 10/02/20 Chris Torres MD [place] Cloud Operations Engineer INTERVENTIONAL CARDIOLOGY 06/29/18
--- OUTSIDE RECORDS SUMMARY | 2025-02-28 13:49 | XMS_ITS | Clinical Summary ---
Author Organization [facility] Address [address] [place] [address] Care Team Providers Care Publishing Manager Name Role Phone Melinda Johnson Primary Care Provider Allergies Active Allergy Reactions Criticality Noted Date [...] mg tablet Take 20 mEq by mouth narrow gauge engineer before breakfast Active C,E,zinc,copper [id number] 250-5-1 mg capsule Take 1 mg by mouth narrow gauge engineer before breakfast Active Hospital, Clinic, or Other [...] movement 02/02/2025 Paradoxical vocal cord motion disorder Encounters Date Type Department Care Team Description 02/28/2025 10:00 AM CDT Office Visit [facility] Medical [facility] Sports Medicine and Primary Care at [address] [place] [phone] Narciso Andino DO Adhesive capsulitis of right shoulder (Primary Dx) 02/28/2025 Documentation [facility] Sports Medicine and Primary Care at [address] [place] [address] Rachel Bajwa MA 02/23/2025 10:00 AM CDT Therapy [facility] Occupational Therapy [address] [place] [address] Shahla Stern OT Functional neurological symptom disorder (conversion disorder), with abnormal movement (Primary Dx) 02/21/2025 Telephone [facility] Orthopedics and Sports Medicine [address] [place] [address] [address] [place] [address] Narciso Andino DO 02/16/2025 9:00 AM CDT Therapy [facility] Occupational Therapy [address] [place] [phone] Shahla Stern OT Functional neurological symptom disorder (conversion disorder), with abnormal movement (Primary Dx) 02/13/2025 8:30 AM CDT Office Visit [facility] Sports Medicine and Primary Care at [address] [place] [address] Narciso Andino, Adhesive capsulitis of right shoulder (Primary Dx) 02/09/2025 10:00 AM CDT Therapy [facility] Occupational Therapy [address] [place] [phone] Shahla Stern OT Functional neurological symptom disorder (conversion disorder), with abnormal movement (Primary Dx) 02/06/2025 Orders Only [facility] Orthopedics and Sports Medicine [address] [place] [address] [address] [place] [address] Jewel Hagre PA Adhesive capsulitis of right shoulder (Primary Dx) 02/06/2025 Telephone [facility] Orthopedics and Sports Medicine [address] [place] [address] [address] [place] [address] Jewel Hager PA 02/02/2025 Plan of Care Documentation [facility] Occupational Therapy [address] [place] [phone] 02/01/2025 10:00 AM CDT Therapy [facility] Occupational Therapy [address] [place] [phone] Shahla Stern OT Functional neurological symptom disorder (conversion disorder), with abnormal movement (Primary Dx) 01/27/2025 10:00 AM CDT Office Visit [facility] Orthopedics and Sports Medicine [address] [place] [address] [address] [place] [address] Jewel Hager PA Adhesive capsulitis of right shoulder (Primary Dx) 01/17/2025 7:00 PM CDT Lab [facility] [address] [place] [address] Myoclonus 01/17/2025 2:30 PM CDT Office Visit [facility] Movement Disorders [address] [facility] 7th [place] [address] Tri Eastman MD Functional neurological symptom disorder (conversion disorder), with abnormal movement (Primary Dx); Myoclonus 12/22/2024 Telephone [facility] Scheduling [address] [place] [address] Tri Eastman MD Scheduling Appointments from Last 3 Months Medical History Medical History Date Comments Fibrocystic breast HLD (hyperlipidemia) Paradoxical vocal cord motion disorder GERD (gastroesophageal reflux disease) Family History Medical History Relation Name Comments Skin cancer Daughter basel cell Breast cancer Mother Breast cancer Mother's Sister Rectal cancer Mother's Sister Relation Name Status Comments Daughter Mother Mother's Sister Social History Tobacco Use Types Packs/Day Years [...] on file 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 Gender Identity Not on file Sexual Orientation Not on file Obstetrics History Para Term AB IAB SAB Ectopic Multiple Livin g Live Births 2 2 2 Date Outcome GA Total Labor Labor/2nd/3rd Weight Sex Type Anes PTL Janet A1 A5 Name Clin Term Term Last Filed Vital Signs Vital Sign Reading [...] 02/28/2025 9:49 AM CDT Plan of Treatment Health Maintenance Due Date Last Done Comments Colon Cancer Screening-Colonoscopy 1954 Depression Screening 1954 Fall Risk Assessment 1955 Hepatitis C Screening 1954 Osteoporosis Screening-Bone Density Scan 1954 DTaP/Tdap/Td Vaccine (1 - Tdap) 1965 Hepatitis B Screening 1972 Zoster Vaccine (1 of 2) 2004 Well Visit 65+ 2019 Pneumococcal vaccine 65+ (2 of 2 - PCV) 05/31/2021 05/31/2020 Influenza Vaccine (Season Ended) 2025 07/15/2019, 06/24/2017, 08/19/2016 Breast Cancer Screening-Mammogram 08/01/2025 08/01/2024, 07/29/2023, 06/13/2022, Additional history exists Procedures Procedure Name Priority Date/Time Associated Diagnosis Comments EGFR Routine 01/17/2025 5:24 PM CDT Myoclonus DIFFERENTIAL AUTO Routine 01/17/2025 5:2 4 PM CDT Myoclonus AMMONIA Routine 01/17/2025 5:24 PM CDT Myoclonus BASIC METABOLIC PANEL Routine 01/17/2025 5:24 PM CDT Myoclonus HEPATIC FUNCTION PANEL Routine 01/17/2025 5:24 PM CDT Myoclonus CBC WITH AUTO DIFFERENTIAL Routine 01/17/2025 5:24 PM CDT Myoclonus SCREENING MAMMOGRAM BILATERAL W IGNO Schedule Routine, Read Routine (OP Routine) 08/01/2024 9:15 AM CDT Screening mammogram, encounter for from Last 3 Months or Most Recently Relevant to Health Maintenance Results * eGFR (01/17/2025 5:24 PM CDT) Pathologist [facility] eGFR 87 >=60 mL/min/1. 73 m2 Comment: [...] of Race in Diagnosing Kidney Disease, JASN 2020). The CKD-EPI equation should not be used for patients with unstable renal function and has not been validated in children and those over 70. Current interpretive data was last reviewed 2021. Blood 01/17/2025 5:24 PM CDT 01/17/2025 6:02 PM CDT us Tri Eastman MD LAB BLOOD ORDERABLES Final Result [facility] [place] [address] * Differential, auto (01/17/2025 5:24 PM CDT) Pathologist [facility] Neutrophil abs 3.70 1.50 - 6.50 K/cumm Imm gran abs 0.02 0.00 - 0.10 K/cumm [facility] Lymphocyte abs 3.22 0.80 - 3.30 K/cumm [facility] Monocyte abs 0.58 0.20 - 0.80 K/cumm [facility] Eosinophil abs 0.19 0.00 - 0.50 K/cumm [facility] Basophil abs 0.05 0.00 - 0.10 K/cumm [facility] Neutrophil pct 47.7 % [facility] Comment: Interpretive Data Percent cell count reference ranges are not reported, since discordance with absolute values may lead to misinterpretation of CBC data. Current Interpretive Data was last revised on 2018. Imm gran pct 0.3 % [facility] Comment: Interpretive Data Percent cell count reference ranges are not reported, since discordance with absolute values may lead to misinterpretation of CBC data. Current Interpretive Data was last revised on 2018. Lymphocyte pct 41.5 % [facility] Comment: Interpretive Data Percent cell count reference ranges are not reported, since discordance with absolute values may lead to misinterpretation of CBC data. Current Interpretive Data was last revised on 2018. Monocyte pct 7.5 % [facility] Comment: Interpretive Data Percent cell count reference ranges are not reported, since discordance with absolute values may lead to misinterpretation of CBC data. Current Interpretive Data was last revised on 2018. Eosinophil pct 2.4 % [facility] Comment: Interpretive Data Percent cell count reference ranges are not reported, since discordance with absolute values may lead to misinterpretation of CBC data. Current Interpretive Data was last revised on 2018. Basophil pct 0.6 % [facility] Comment: Interpretive Data Percent cell count reference ranges are not reported, since discordance with absolute values may lead to misinterpretation of CBC data. Current Interpretive Data was last revised on 2018. Blood 01/17/2025 5:24 PM CDT 01/17/2025 5:58 PM CDT us Tri Eastman MD LAB BLOOD ORDERABLES Final Result [facility] [place] [address] * CBC with auto differential (01/17/2025 5:24 PM CDT) WBC 7.76 3.80 - 9.90 K/cumm Hgb 12.9 11.9 - 15.5 g/dL [facility] Hct 38.8 35.6 - 45.5 % [facility] Plt 218 150 - 400 K/cumm [facility] MPV 9.7 9.1 - 12.3 fL [facility] RBC 4.39 3.90 - 5.20 M/cumm [facility] MCV 88.4 81.3 - 96.4 fL [facility] MCH 29.4 27.1 - 33.3 pg [facility] MCHC 33.2 32.3 - 35.7 g/dL [facility] RDW CV 12.0 11.1 - 14.9 % [facility] RDW SD 38.4 35.7 - 48.1 fL [facility] NRBC abs 0.00 0.00 - 0.01 K/cumm [facility] Blood 01/17/2025 5:24 PM CDT 01/17/2025 5:58 PM CDT Tri Eastman MD LAB BLOOD ORDERABLES Final Result Performing Organization Address City/[facility]/ZIP Co de Phone Number [facility] Department [place] [address] * Ammonia (01/17/2025 5:24 PM CDT) Ammonia <20 <=50 mcmol/L Comment:Repeated and Verifie d Blood 01/17/2025 5:24 PM CDT 01/17/2025 5:39 PM CDT Tri Eastman MD LAB BLOOD ORDERABLES Final Result Performing Organization Address City/[facility]/ZIP Co de Phone Number [facility] Department [place] [address] * Hepatic function panel (01/17/2025 5:24 PM CDT) Bilirubin, total 0.4 0.1 - 1.2 mg/dL Bilirubin, direct <0.2 0.1 - 0.3 mg/dL [facility] Protein, pl 7.7 6.5 - 8.5 g/dL [facility] Albumin 4.4 3.5 - 5.0 g/dL [facility] Alk phos 70 40 - 130 Units/L [facility] ALT 29 7 - 45 Units/L [facility] AST 27 10 - 45 Units/L [facility] Blood 01/17/2025 5:24 PM CDT 01/17/2025 5:58 PM CDT Tri Eastman MD LAB BLOOD ORDERABLES Final Result [facility] [place] [address] * Basic metabolic panel (01/17/2025 5:24 PM CDT) Pathologist [facility] Sodium 144 135 - 145 mmol/L Potassium, pl 4.1 3.3 - 4.9 mmol/L [facility] Chloride 107 97 - 110 mmol/L [facility] CO2 31 22 - 32 mmol/L [facility] Anion gap 6 2 - 15 mmol/L [facility] BUN 13 6 - 25 mg/dL [facility] Creatinine 0.74 0.60 - 1.10 mg/dL [facility] Glucose 102 70 - 199 mg/dL [facility] Comment: Interpretive Data Fasting glucose >/= 126 [...] 2022. Calcium 10.0 8.5 - 10.3 mg/dL [facility] Blood 01/17/2025 5:24 PM CDT 01/17/2025 5:58 PM CDT Tri Eastman MD LAB BLOOD ORDERABLES Final Result [facility] [place] [address] * Screening Mammogram Bilateral W Gino (08/01/2024 9:15 AM CDT) Anatomical Region Laterality [...] nodes seen in the axillae or elsewhere. Self Screening Mammogram IMG MAMMO PROCEDURES Fi nal Result from Last 3 Months or Most Recently Relevant to Health Maintenance Insurance [employer] MEDICARE [employer] OPEN ACCESS UHC MEDICARE ADVANTAGE [facility] MEDICARE [employer] MEDICARE Care Teams Publishing Manager Relationship Specialty Start Date End Date Melinda Johnson PA [address] [place] [address] PCP - General 04/23/22
--- OUTSIDE RECORDS SUMMARY | 2025-02-28 13:50 | XMS_ITS | Encounter Summary ---
Author Organization [facility] Healthcare Address [address] [place] [address] Care Team Providers Care Forming Acid Dumper Name Role Phone Clement Gates MD Primary Care Provider [phone] Melinda Johnson Primary Care Provider Reason for Visit * Reason Onset Date Comments Scheduling Appointments 06/11/2021 confirmi ng mammogram appt- no answer Encounter Details Date Type Department Care Team ([facility] st Contact Info) Description 06/11/2021 Telephone [facility] [address] [place] [phone] Mary Lou Guzman RT Scheduling Appointments ( confirming mammogram appt- no answer ) Social History Tobacco Use Types Packs/Day Years Used Date Smoking Tobacco: Never Assessed Comments No Sex and Gender Information Value Date Recorded Sex Assigned at Not on file 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
[2025-02-28 14:11] LABS: Basophils Absolute Auto 0.1 K/mm3 (0.0-0.1); Basophils Percent Auto 0.6 % (0.2-1.2); Eosinophils Percent Auto 0.5 % (0-4.4); Hematocrit 42.4 % (37.0-47.0); Hemoglobin 13.5 g/dL (12.0-15.0); Immature Granulocyte Absolute 0.03 K/mm3 (0.00-0.031); Immature Granulocyte Percent A 0.4 % (0-0.5); Lymphocytes Absolute Auto 1.59 K/mm3 (0.9-3.2); Lymphocytes Percent Auto 19.6 % (18.3-44.2); Mean Corpuscular HGB Conc 31.8 g/dl (32-36); Mean Corpuscular Hemoglobin 28.7 pg (26-34); Mean Platelet Volume 9.5 fl (7.4-10.4); Monocytes Absolute Auto 0.2 K/mm3 (0.1-0.6); Monocytes Percent Auto 2.2 % (2.6-8.5); Neutrophils Absolute Auto 6.2 K/mm3 (1.3-6.7); Neutrophils Percent Auto 76.7 % (45.5-73.1); Platelet Count Result 203 k/mm3 (150-375); Red Blood Count 4.71 M/mm3 (4.2-5.4); Red Cell Distribution Width 11.9 % (11.5-14.5); White Blood Count 8.1 K/mm3 (4.5-10.0)
[2025-02-28 14:26] LABS: Alanine Aminotransferase 33 U/L (6-35); Albumin Level 4.7 g/dL (3.5-5.1); Alkaline Phosphatase 79 U/L (38-126); Anion Gap 7 mmol/L (4-12); Aspartate Amino Transferase 36 U/L (14-36); Bilirubin,Total 0.5 mg/dL (0.2-1.3); Blood Urea Nitrogen 18 mg/dL (7-17); Calcium 9.6 mg/dL (8.4-10.2); Carbon Dioxide 29 mmol/L (22-30); Chloride 106 mmol/L (98-107); Creatine Kinase 103 U/L (30-135); Estimated CRCL calculation 68 ml/min; Estimated Glomerular Filt Rate > 60; Glucose 128 mg/dL (65-110); Potassium 4.3 mmol/L (3.4-5.0); Sodium 142 mmol/L (137-145)
--- NOTE | 2025-02-28 14:36 | ED_ITS ---
HPI - General Adult General Chief complaint: Unspecified Stated complaint: convulsions after lido injection Time Seen by Provider: 02/28/25 12:41 History of Present Illness HPI narrative: Patient is a 69-year-old female who presents ER after having concerns for having convulsions after a shoulder injection. She had lidocaine injected into her right shoulder for her frozen shoulder. She then was feeling lightheaded and having trouble walking and got her car. When she got in her car she started thrashing her arms and legs spasmodically. 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 She did not lose consciousness. Related Data Allergies Allergy/AdvReac Type Severity Reaction Status Date / Time Penicillins Allergy Unknown Hives Verified 02/28/25 12:19 Review of Systems 2 Review of Systems: All systems reviewed & are unremarkable except as noted in HPI and below Constitutional: Constitutional: Reports no additional constitutional complaints Cardiovascular: Cardiovascular: Reports no additional cardiovascular complaints Respiratory: Respiratory: Reports no additional respiratory complaints Gastrointestinal: Gastrointestinal: Reports no additional gastrointestinal complaints PMFSH Past Medical History Medical History (Updated 02/28/25 @ 16:43 by Jaskaran Deras MD) Frozen shoulder Myoclonic jerking Exam 2 Narrative: GENERAL: Well-appearing, well-nourished, and in no acute distress. HEAD: Normocephalic, atraumatic. ENT: Mucous membranes moist. CHEST: Clear to auscultation. No respiratory distress. HEART: Regular rate and rhythm. Normal peripheral pulses. ABDOMEN: Soft, nontender, nondistended. EXTREMITIES: Normal range of motion. No edema. Injections site right posterior shoulder with bandage. SKIN: Warm, dry, no rash. NEURO: No focal deficits. Alert and oriented x3. Clear speech, no expressive aphasia, no extremity drift or weakness. PSYCH: Normal mood and affect. Course Course Emergency Course: Suspect vasovagal episode that then resulted her my clonus. Patient normal at this time. Labs reassuring. Appropriate for discharge home. Vital Signs Vital signs: Vital Signs Temperature 98.0 F 02/28/25 11:33 Pulse Rate 56 L 02/28/25 11:33 Respiratory Rate 16 02/28/25 11:33 Blood Pressure 132/75 02/28/25 11:33 Pulse Oximetry 98 02/28/25 11:33 Oxygen Delivery Room Air 02/28/25 11:33 Temperature 98.0 F 02/28/25 11:33 Pulse Rate 58 L 02/28/25 15:09 Respiratory Rate 14 02/28/25 15:09 Blood Pressure 132/85 02/28/25 15:09 Pulse Oximetry 100 02/28/25 15:09 Oxygen Delivery Room Air 02/28/25 11:33 Medical Decision Making Vital Signs Vital Signs: Vital Signs Temperature 98.0 F 02/28/25 11:33 Pulse Rate 56 L 02/28/25 11:33 Respiratory Rate 16 02/28/25 11:33 Blood Pressure 132/75 02/28/25 11:33 Pulse Oximetry 98 02/28/25 11:33 Oxygen Delivery Room Air 02/28/25 11:33 Temperature 98.0 F 02/28/25 11:33 Pulse Rate 58 L 02/28/25 15:09 Respiratory Rate 14 02/28/25 15:09 Blood Pressure 132/85 02/28/25 15:09 Pulse Oximetry 100 02/28/25 15:09 Oxygen Delivery Room Air 02/28/25 11:33 Lab Data 02/28/25 14:05 02/28/25 14:05 Labs: Lab Results 02/28/25 Range/Units 14:05 WBC 8.1 (4.5-10.0) K/mm3 RBC 4.71 (4.2-5.4) M/mm3 Hgb 13.5 (12.0-15.0) g/dL Hct 42.4 (37.0-47.0) % MCV 90.0 (80-100) fl MCH 28.7 (26-34) pg MCHC 31.8 L (32-36) g/dl RDW 11.9 (11.5-14.5) % Plt Count 203 (150-375) k/mm3 MPV 9.5 (7.4-10.4) fl Immature Gran % (Auto) 0.4 (0-0.5) % Neut % (Auto) 76.7 H (45.5-73.1) % Lymph % (Auto) 19.6 (18.3-44.2) % [place] % (Auto) 2.2 L (2.6-8.5) % Eos % (Auto) 0.5 (0-4.4) % Baso % (Auto) 0.6 (0.2-1.2) % Lymph # (Auto) 1.59 (0.9-3.2) K/mm3 [place] # (Auto) 0.2 (0.1-0.6) K/mm3 Eos # (Auto) 0.0 (0-0.3) K/mm3 Baso # (Auto) 0.1 (0.0-0.1) K/mm3 Abs Immat Gran (auto) 0.03 (0.00-0.031) K/mm3 Absolute Neuts (auto) 6.2 (1.3-6.7) K/mm3 Absolute Nucleated RBC 0.000 (0.0-0.012) K/mm3 Nucleated RBC % 0.0 (0.0-0.2) % Sodium 142 (137-145) mmol/L Potassium 4.3 (3.4-5.0) mmol/L Chloride 106 (98-107) mmol/L Carbon Dioxide 29 (22-30) mmol/L Anion Gap 7 (4-12) mmol/L BUN 18 H (7-17) mg/dL Creatinine 0.68 L (0.7-1.0) mg/dL Estim Creat Clear Calc 68 ml/min Estimated GFR > 60 (59 - ) Glucose 128 H (65-110) mg/dL Calcium 9.6 (8.4-10.2) mg/dL Total Bilirubin 0.5 (0.2-1.3) mg/dL AST 36 (14-36) U/L ALT 33 (6-35) U/L Alkaline Phosphatase 79 (38-126) U/L Total Creatine Kinase 103 (30-135) U/L Total Protein 8.0 (6.3-8.2) g/dL Albumin 4.7 (3.5-5.1) g/dL Discharge Plan Discharge Clinical Impression: Stress reaction, Myoclonic disorder Patient Disposition: Home Condition: Stable Additional Instructions: Follow-up with your neurologist and primary care doctor for further treatment evaluation. Your lab work in the ER was unremarkable. Patient Language: Persian Follow-up/Referrals: UNKNOWN,DOCTOR [Primary Care Provider] - 1 Week
[2025-02-28 15:09] VITALS: BP 132/85; PULSE 58; RESP 14; O2SAT 100
== END 2025-02-28 15:11 | disposition home or self-care (01) ==
PROVIDERS: Emergency Provider Emergency Medicine
DX: G25.3 Myoclonus (principal); F43.9 Reaction to severe stress, unspecified
CPT/HCPCS: 36415; 80053; 82550; 85025; 99283